=== PATIENT | female | born 1965 | race African-American/Black ===

== ENCOUNTER 2017-12-16 16:33 | Outpatient (CLI) | payer BC | END 2017-12-16 16:34 | disposition home or self-care (01) | LOC: BICMAMMO 16:33 | PROVIDERS: ATTEND Family Medicine | DX: Z12.31 Encounter for screening mammogram for malignant neoplasm of breast (principal) | CPT/HCPCS: 77063; 77067 ==

== ENCOUNTER 2018-12-19 10:17 | Outpatient (CLI) | payer BC | END 2018-12-19 10:18 | disposition home or self-care (01) | LOC: BICMAMMO 10:17 | PROVIDERS: ATTEND Family Medicine | DX: Z12.31 Encounter for screening mammogram for malignant neoplasm of breast (principal) | CPT/HCPCS: 77063; 77067 ==

== ENCOUNTER 2019-12-24 08:11 | Outpatient (CLI) | payer BC ==
--- NOTE | 2019-12-27 13:28 | MMO ---
Bilateral MAMMO Bilat Screen [facility]. CLINICAL HISTORY: Patient is 54 years old and is seen for screening. The patient has no family history of breast cancer. The patient has no personal history of cancer. VIEWS: The views performed were: bilateral craniocaudal with tomosynthesis and bilateral mediolateral oblique with tomosynthesis. FILMS COMPARED: The present examination has been compared to prior imaging studies performed at [facility] on 10/14/2015, 10/27/2016, 12/16/2017 and 12/19/2018. This study has been interpreted with the assistance of computer-aided detection. MAMMOGRAM FINDINGS: There are scattered fibroglandular densities. Finding 1: There are stable benign appearing calcifications seen in both breasts. Finding 2: There are stable benign appearing densities seen in both breasts. There are no suspicious masses, suspicious calcifications, or new areas of architectural distortion. IMPRESSION: THERE IS NO MAMMOGRAPHIC EVIDENCE OF MALIGNANCY. A ROUTINE FOLLOW-UP MAMMOGRAM IN 1 YEAR IS RECOMMENDED. THE RESULTS OF THIS EXAM WERE SENT TO THE PATIENT. ACR BI-RADS Category 2 - Benign finding MAMMOGRAPHY NOTE: 1. A negative mammogram report should not delay a biopsy if a dominant of clinically suspicious mass is present. 2. Approximately 10% to 15% of breast cancers are not detected by mammography. 3. Adenosis and dense breasts may obscure an underlying neoplasm. Reported by: PATRICE MANSFIELD MD Electonically Signed: [id number]
== END 2019-12-24 08:12 | disposition home or self-care (01) ==
LOC: BICMAMMO 08:11
PROVIDERS: ATTEND Family Medicine
DX: Z12.31 Encounter for screening mammogram for malignant neoplasm of breast (principal)
CPT/HCPCS: 77063; 77067

== ENCOUNTER 2021-01-08 08:36 | Outpatient (CLI) | payer BC ==
--- NOTE | 2021-01-08 09:26 | MMO ---
Bilateral MAMMO Bilat Screen [facility]. CLINICAL HISTORY: Patient is 55 years old and is seen for screening. The patient has no family history of breast cancer. The patient has no personal history of cancer. VIEWS: The views performed were: bilateral craniocaudal with tomosynthesis and bilateral mediolateral oblique with tomosynthesis. FILMS COMPARED: The present examination has been compared to prior imaging studies performed at [facility] on 10/27/2016, 12/16/2017, 12/19/2018 and 12/24/2019. This study has been interpreted with the assistance of computer-aided detection. MAMMOGRAM FINDINGS: There are scattered fibroglandular densities. There are stable benign appearing calcifications seen in both breasts. There are no suspicious masses, suspicious calcifications, or new areas of architectural distortion. IMPRESSION: THERE IS NO MAMMOGRAPHIC EVIDENCE OF MALIGNANCY. A ROUTINE FOLLOW-UP MAMMOGRAM IN 1 YEAR IS RECOMMENDED. THE RESULTS OF THIS EXAM WERE SENT TO THE PATIENT. ACR BI-RADS Category 2 - Benign finding MAMMOGRAPHY NOTE: 1. A negative mammogram report should not delay a biopsy if a dominant of clinically suspicious mass is present. 2. Approximately 10% to 15% of breast cancers are not detected by mammography. 3. Adenosis and dense breasts may obscure an underlying neoplasm. Reported by: PAIGE JACKSON MD Electonically Signed: [id number]
== END 2021-01-08 08:37 | disposition home or self-care (01) ==
LOC: BICMAMMO 08:36
PROVIDERS: ATTEND Family Medicine
DX: Z12.31 Encounter for screening mammogram for malignant neoplasm of breast (principal)
CPT/HCPCS: 77063; 77067

== ENCOUNTER 2022-03-30 10:07 | Outpatient (CLI) | payer BC | END 2022-03-30 10:08 | disposition home or self-care (01) | LOC: BICMAMMO 10:07 | PROVIDERS: ATTEND Family Medicine | DX: Z12.31 Encounter for screening mammogram for malignant neoplasm of breast (principal) | CPT/HCPCS: 77063; 77067 ==

== ENCOUNTER 2022-06-04 13:59 | Inpatient (IN) | payer OTHER, BC ==
[2022-06-04] MEDS ORDERED: Fentanyl 100 MCG/2 ML VIAL ONE (15:02)
[2022-06-04] MEDS ORDERED: Ketorolac Tromethamine 30 MG/ML VIAL ONE (15:58)
[2022-06-04] MEDS ORDERED: HYDROcodone/Acetaminophen 5/325 mg Tablet ONE (15:58)
[2022-06-04 16:01] LABS: #Lymphocytes 1.7 thou/uL (1.20-3.40); #Monocytes 0.5 thou/uL (0.11-0.59); #Neutrophils 6.5 thou/uL (1.40-6.50); %Basophils 0.4 % (0.0-1.0); %Eosinophils 0.5 % (0.0-10.0); %Lymphocytes 19.4 % (21.0-51.0); %Monocytes 5.6 % (0.0-10.0); Mean Corpuscular HGB CONC 31.4 g/dL (32.0-36.0); Mean Corpuscular Hemoglobin 30.9 pg (27.0-31.0); Mean Corpuscular Volume 98.4 fL (78.0-98.0); Platelet Count 153 thou/uL (130-400); RBC Distribution Width 13.6 % (11.5-14.5); Red Blood Cell (RBC) Count 3.88 mill/uL (4.20-5.40); White Blood Cell (WBC) Count 8.8 thou/uL (4.8-10.8)
[2022-06-04] MEDS ORDERED: Morphine 2 MG/ML VIAL SLOW IVP PRN ×2 (16:01→16:04)
[2022-06-04] MEDS ORDERED: Cyclobenzaprine 10 MG TAB PO PRN (16:01)
[2022-06-04] MEDS ORDERED: HumaLOG 300 UNITS/3 ML VIAL SC PRN (16:04)
[2022-06-04] MEDS ORDERED: Dextrose 5% in Water 1,000 ML IV PRN (16:04)
[2022-06-04] MEDS ORDERED: Promethazine HCl 25 MG/ML VIAL IM PRN (16:04)
[2022-06-04] MEDS ORDERED: hydrALAZINE 20 MG/ML VIAL SLOW IVP PRN (16:04)
[2022-06-04] MEDS ORDERED: Dextrose 50% Abboject 50 ML SYRINGE SLOW IVP PRN (16:04)
[2022-06-04] MEDS ORDERED: Sodium Chloride 0.9% 1,000 ML IV SCH (16:15)
[2022-06-04 16:33] LABS: ALT (SGPT) 17 U/L (8-55); AST (SGOT) 22 U/L (5-34); Albumin 4.4 g/dL (3.5-5.0); Alkaline Phosphatase 57 U/L (40-110); Anion Gap 19 mmol/L (10-20); BUN (Urea Nitrogen) 21 mg/dL (9.8-20.1); Bilirubin, Total 0.4 mg/dL (0.2-1.2); Calc. Creatinine Clearance 0 mL/min (70-130); Calcium 9.7 mg/dL (7.8-10.44); Carbon Dioxide 19 mmol/L (22-29); Chloride 106 mmol/L (98-107); Estimated GFR 49; Globulin 3.2 g/dL (2.4-3.5); Glucose 153 mg/dL (70-105); Potassium 4.5 mmol/L (3.5-5.1); Protein, Total 7.6 g/dL (6.0-8.3); Sodium 139 mmol/L (136-145)
[2022-06-04] MEDS ORDERED: traMADol HCl 50 MG TAB PO PRN ×2 (17:04→18:00)
[2022-06-04 17:11] LABS: INR-International Normal Ratio 0.9; PTT 28.7 sec (22.9-36.1); Prothrombin Time 12.2 sec (12.0-14.7)
[2022-06-04] MEDS ORDERED: Acetaminophen/Codeine 30-300mg Tablet PO SCH (18:00)
[2022-06-04] MEDS ORDERED: Acetaminophen 325 MG TAB PO SCH (18:00)
[2022-06-04] MEDS: Sodium Chloride 0.9% 1,000 ML IV SCH (19:37)
[2022-06-04] MEDS: Acetaminophen/Codeine 30-300mg Tablet PO SCH (19:39)
[2022-06-04] MEDS: Ketorolac Tromethamine 30 MG/ML VIAL IVP SCH (19:48)
[2022-06-04 20:13] LABS: SARS-CoV-2 NAA Rapid Test Not Detected (NotDetected)
[2022-06-04 20:14] VITALS: BMI 28.8
[2022-06-04] MEDS: Gabapentin 300 MG CAP PO SCH (20:33)
[2022-06-04] MEDS: Famotidine/PF 20 mg/2ml Vial SLOW IVP SCH (20:34)
[2022-06-04] MEDS: Senokot S 8.6-50 MG TAB PO SCH (20:34)
[2022-06-05] MEDS: Acetaminophen/Codeine 30-300mg Tablet PO SCH ×3 (01:14→13:28)
[2022-06-05] MEDS: Ketorolac Tromethamine 30 MG/ML VIAL IVP SCH ×2 (01:18→06:46)
[2022-06-05] MEDS: Sodium Chloride 0.9% 1,000 ML IV SCH ×3 (01:20→19:32)
[2022-06-05] MEDS: Ondansetron PF 4 MG/2 ML Vial IVP PRN ×2 (06:17→12:24)
[2022-06-05] MEDS ORDERED: Sodium Chloride 0.9% 1,000 ML IV SCH (06:45)
[2022-06-05 07:27] LABS: #Eosinphils 0.1 thou/uL (0.0-0.7); #Lymphocytes 1.8 thou/uL (1.20-3.40); #Monocytes 0.8 thou/uL (0.11-0.59); #Neutrophils 4.3 thou/uL (1.40-6.50); %Basophils 0.5 % (0.0-1.0); %Eosinophils 0.7 % (0.0-10.0); %Lymphocytes 25.8 % (21.0-51.0); %Monocytes 11.9 % (0.0-10.0); %Neutrophils 61.1 % (42.0-75.0); Hemoglobin 11.4 g/dL (12.0-16.0); Mean Corpuscular HGB CONC 30.5 g/dL (32.0-36.0); Mean Corpuscular Hemoglobin 30.9 pg (27.0-31.0); Mean Platelet Volume 9.7 fL (7.4-10.4); Platelet Count 136 thou/uL (130-400); RBC Distribution Width 13.6 % (11.5-14.5); Red Blood Cell (RBC) Count 3.69 mill/uL (4.20-5.40)
[2022-06-05 07:33] LABS: Anion Gap 14 mmol/L (10-20); BUN (Urea Nitrogen) 28 mg/dL (9.8-20.1); Calc. Creatinine Clearance 58 mL/min (70-130); Calcium 8.7 mg/dL (7.8-10.44); Carbon Dioxide 19 mmol/L (22-29); Chloride 110 mmol/L (98-107); Estimated GFR 40; Glucose 125 mg/dL (70-105); Potassium 4.2 mmol/L (3.5-5.1); Sodium 139 mmol/L (136-145)
[2022-06-05] MEDS ORDERED: traMADol HCl 50 MG TAB PO PRN (07:37)
[2022-06-05] MEDS: Senokot S 8.6-50 MG TAB PO SCH ×2 (07:59→20:28)
[2022-06-05] MEDS: Gabapentin 300 MG CAP PO SCH ×3 (07:59→20:28)
[2022-06-05] MEDS: Famotidine/PF 20 mg/2ml Vial SLOW IVP SCH (07:59)
[2022-06-05] MEDS: Polyethylene Glycol 3350 17 GM Packet PO SCH (08:00)
[2022-06-05] MEDS ORDERED: Dextrose 5 %-0.45 % NaCl 1,000 ML IV SCH (12:30)
[2022-06-05] MEDS ORDERED: Morphine 2 MG/ML VIAL SLOW IVP PRN (12:44)
[2022-06-05] MEDS ORDERED: Acetaminophen 500 MG TAB PO SCH (12:45)
[2022-06-05] MEDS: Scopolamine 1.5 mg/72 hour Patch TD SCH (13:19)
[2022-06-05 13:48] LABS: Bacteria/HPF 4+ HPF (None Seen); Bilirubin Negative (Negative); Blood, Urine Negative (Negative); Clarity Clear (Clear); Glucose, Urine (Dipstick) 30 mg/dL (Negative); Ketone, Urine Negative (Negative); Leukocyte 250 Leu/uL (Negative); Nitrite Negative (Negative); Protein, Urine (Dipstick) 10 mg/dL (Neg-Trace); RBC/HPF 0-3 HPF (0-3); Specific Gravity, Urine 1.018 (1.002-1.036); Squamous Epithelial 0-3 HPF (0-3); Urobilinogen Normal mg/dL (Less than 2)
[2022-06-05 13:50] LABS: Urine Culture Reflex Yes Yes
[2022-06-05] MEDS: cefTRIAXone\\ROCEPHIN 2 GM in Sodium Chloride 0.9% 100 ML IVPB SCH (15:58)
[2022-06-05] MEDS: Heparin 5,000 UNITS/ML VIAL SC SCH ×2 (15:58→20:30)
[2022-06-05] MEDS: Acetaminophen 500 MG TAB PO SCH (18:01)
[2022-06-05 19:16] LABS: Anion Gap 14 mmol/L (10-20); BUN (Urea Nitrogen) 27 mg/dL (9.8-20.1); Calc. Creatinine Clearance 55 mL/min (70-130); Calcium 8.6 mg/dL (7.8-10.44); Carbon Dioxide 21 mmol/L (22-29); Chloride 108 mmol/L (98-107); Estimated GFR 38; Glucose 353 mg/dL (70-105); Potassium 4.6 mmol/L (3.5-5.1); Sodium 138 mmol/L (136-145)
[2022-06-05] MEDS: Atorvastatin Calcium 40 MG TAB PO SCH (20:28)
[2022-06-05] MEDS ORDERED: Dulaglutide (Trulicity) 0.75 MG/0.5 ML Pen.Injctr SC SCH (21:15)
[2022-06-05] MEDS ORDERED: Insulin Regular 300 UNITS/3 ML VIAL SC SCH (21:15)
[2022-06-06] MEDS: Acetaminophen 500 MG TAB PO SCH ×2 (00:15→05:31)
[2022-06-06] MEDS: Sodium Chloride 0.9% 1,000 ML IV SCH ×2 (03:34→18:47)
[2022-06-06 06:38] LABS: Band 9 % (5-11); Hemoglobin 11.5 g/dL (12.0-16.0); Hemoglobin A1c 6.6 % (4.0-6.0); Lymphocytes 16 % (21-51); MDiff Complete? YES; Mean Corpuscular HGB CONC 30.9 g/dL (32.0-36.0); Mean Corpuscular Hemoglobin 31.1 pg (27.0-31.0); Mean Platelet Volume 10.1 fL (7.4-10.4); Monocytes 8 % (0-10); Neutrophil 67 % (42-75); Platelet Morphology Comment PLT clumps seen-ADEQ; RBC Distribution Width 13.6 % (11.5-14.5); RBC Morphology Normal; Red Blood Cell (RBC) Count 3.71 mill/uL (4.20-5.40); White Blood Cell (WBC) Count 5.8 thou/uL (4.8-10.8)
[2022-06-06 06:47] LABS: Anion Gap 12 mmol/L (10-20); BUN (Urea Nitrogen) 24 mg/dL (9.8-20.1); Calc. Creatinine Clearance 68 mL/min (70-130); Calcium 8.6 mg/dL (7.8-10.44); Carbon Dioxide 22 mmol/L (22-29); Chloride 113 mmol/L (98-107); Estimated GFR 48; Glucose 71 mg/dL (70-105); Magnesium 1.8 mg/dL (1.6-2.6); Phosphorus 3.9 mg/dL (2.3-4.7); Potassium 4.7 mmol/L (3.5-5.1); Sodium 142 mmol/L (136-145)
[2022-06-06] MEDS ORDERED: Magnesium 2 GM/50 ML(in water) 3 GM in Premix Bag 1 BAG IVPB SCH (07:15)
[2022-06-06] MEDS: Senokot S 8.6-50 MG TAB PO SCH ×2 (08:48→19:42)
[2022-06-06] MEDS: Gabapentin 300 MG CAP PO SCH ×3 (08:49→19:41)
[2022-06-06] MEDS: Acetaminophen/Codeine 30-300mg Tablet PO SCH ×3 (08:50→19:41)
[2022-06-06] MEDS ORDERED: Magnesium Sulfate 3 GM in Sodium Chloride 0.9% 100 ML IVPB SCH (09:00)
[2022-06-06] MEDS ORDERED: Pioglitazone HCl 45 MG TAB PO SCH (09:00)
[2022-06-06] MEDS: Polyethylene Glycol 3350 17 GM Packet PO SCH (09:46)
[2022-06-06] MEDS ORDERED: Hydrocortisone Sod Succ/PF 100 mg/2 ml Vial IVP SCH (10:45)
[2022-06-06] MEDS ORDERED: Cyclobenzaprine 10 MG TAB PO PRN (13:01)
[2022-06-06 13:32] LABS: Platelet Count 138 thou/uL (130-400)
[2022-06-06] MEDS: cefTRIAXone\\ROCEPHIN 2 GM in Sodium Chloride 0.9% 100 ML IVPB SCH (15:47)
[2022-06-06] MEDS: Hydrocortisone Sod Succ/PF 100 mg/2 ml Vial IVP SCH ×2 (15:47→21:47)
[2022-06-06] MEDS: Atorvastatin Calcium 40 MG TAB PO SCH (19:42)
[2022-06-06] MEDS ORDERED: Insulin Glargine 30 UNITS/0.3 ML VIAL SC SCH (21:00)
[2022-06-06] MEDS: Heparin 5,000 UNITS/ML VIAL SC SCH (21:47)
[2022-06-07] MEDS ORDERED: Insulin Regular 300 UNITS/3 ML VIAL SC SCH ×2 (01:15→01:30)
[2022-06-07] MEDS: Acetaminophen/Codeine 30-300mg Tablet PO SCH ×4 (01:28→20:43)
[2022-06-07 07:38] LABS: Anion Gap 11 mmol/L (10-20); BUN (Urea Nitrogen) 19 mg/dL (9.8-20.1); Calc. Creatinine Clearance 82 mL/min (70-130); Calcium 8.9 mg/dL (7.8-10.44); Carbon Dioxide 22 mmol/L (22-29); Chloride 112 mmol/L (98-107); Estimated GFR 61; Glucose 58 mg/dL (70-105); Magnesium 2.1 mg/dL (1.6-2.6); Phosphorus 2.9 mg/dL (2.3-4.7); Potassium 4.6 mmol/L (3.5-5.1); Sodium 140 mmol/L (136-145)
[2022-06-07] MEDS ORDERED: glyBURIDE 5 MG TAB PO SCH (08:00)
[2022-06-07] MEDS ORDERED: metFORMIN 500 MG TAB PO SCH (08:00)
[2022-06-07] MEDS ORDERED: Insulin Glargine 30 UNITS/0.3 ML VIAL SC SCH ×3 (09:00→21:00)
[2022-06-07] MEDS: Senokot S 8.6-50 MG TAB PO SCH ×2 (09:01→20:42)
[2022-06-07] MEDS: Heparin 5,000 UNITS/ML VIAL SC SCH ×3 (09:02→20:44)
[2022-06-07] MEDS: Polyethylene Glycol 3350 17 GM Packet PO SCH (09:02)
[2022-06-07] MEDS: Gabapentin 300 MG CAP PO SCH ×3 (09:02→20:44)
[2022-06-07] MEDS: traMADol HCl 50 MG TAB PO SCH ×2 (11:46→17:24)
[2022-06-07] MEDS: Ibuprofen 200 MG TAB PO SCH ×2 (11:46→17:24)
[2022-06-07] MEDS: cefTRIAXone\\ROCEPHIN 2 GM in Sodium Chloride 0.9% 100 ML IVPB SCH (14:47)
[2022-06-07] MEDS: Atorvastatin Calcium 40 MG TAB PO SCH (20:44)
[2022-06-08] MEDS: traMADol HCl 50 MG TAB PO SCH ×3 (00:33→11:18)
[2022-06-08] MEDS: Acetaminophen/Codeine 30-300mg Tablet PO SCH ×3 (02:17→14:03)
[2022-06-08] MEDS: Ibuprofen 200 MG TAB PO SCH (02:17)
[2022-06-08] MEDS ORDERED: Ibuprofen 200 MG TAB PO PRN (08:15)
[2022-06-08] MEDS: Polyethylene Glycol 3350 17 GM Packet PO SCH (08:49)
[2022-06-08] MEDS: Gabapentin 300 MG CAP PO SCH ×2 (08:52→14:02)
[2022-06-08] MEDS: Senokot S 8.6-50 MG TAB PO SCH (08:52)
[2022-06-08] MEDS: Heparin 5,000 UNITS/ML VIAL SC SCH ×2 (08:53→14:14)
[2022-06-08 11:15] VITALS: BP 110/68; TEMP 97.3
[2022-06-08] MEDS: Scopolamine 1.5 mg/72 hour Patch TD SCH (11:19)
== END 2022-06-08 14:30 | disposition home or self-care (01) | DRG 200 ==
LOC: ERS 13:59 → IMCU/EMU 16:02 → SURG A 06-05 21:24
PROVIDERS: ADMIT Physician Assistant; ATTEND Surgery
DX: S27.2XXA Traumatic hemopneumothorax, initial encounter (principal); S22.41XA Multiple fractures of ribs, right side, initial encounter for closed fracture; S27.329A Contusion of lung, unspecified, initial encounter; N17.9 Acute kidney failure, unspecified; N39.0 Urinary tract infection, site not specified; E27.40 Unspecified adrenocortical insufficiency; Z20.822 Contact with and (suspected) exposure to COVID-19; W01.0XXA Fall on same level from slipping, tripping and stumbling without subsequent striking against object, initial encounter; E78.00 Pure hypercholesterolemia, unspecified; E11.9 Type 2 diabetes mellitus without complications; F17.210 Nicotine dependence, cigarettes, uncomplicated; N18.9 Chronic kidney disease, unspecified; Z98.51 Tubal ligation status
CPT/HCPCS: 36415; 36416; 71045; 71250; 80048; 80053; 81001; 82533; 83036; 83735; 84100; 84484; 85025; 85610; 85730; 87077; 87086; 87186; 93005; 93010; 96374; 96375; G0306; G0390; J0696; J1644; J1720; J1815; J1885; J2270; J2405; J3010; J3475; J3490; J7042; J7050; J7999; S0028

== ENCOUNTER 2022-06-21 09:46 | Outpatient (CLI) | payer OTHER | END 2022-06-21 09:47 | disposition home or self-care (01) | LOC: BICRAD 09:46 | PROVIDERS: ATTEND Surgery | DX: S22.49XA Multiple fractures of ribs, unspecified side, initial encounter for closed fracture (principal); J98.4 Other disorders of lung; J18.1 Lobar pneumonia, unspecified organism | CPT/HCPCS: 71046 ==

== ENCOUNTER 2022-07-05 10:07 | Outpatient (CLI) | payer OTHER | END 2022-07-05 10:08 | disposition home or self-care (01) | LOC: BICRAD 10:07 | PROVIDERS: ATTEND Surgery | DX: S22.39XA Fracture of one rib, unspecified side, initial encounter for closed fracture (principal) | CPT/HCPCS: 71046 ==

== ENCOUNTER 2023-04-27 09:39 | Outpatient (CLI) | payer OTHER | END 2023-04-27 09:40 | disposition home or self-care (01) | LOC: BICMAMMO 09:39 | PROVIDERS: ATTEND Family Medicine | DX: Z12.31 Encounter for screening mammogram for malignant neoplasm of breast (principal) | CPT/HCPCS: 77063; 77067 ==

== ENCOUNTER 2024-05-18 12:03 | Outpatient (CLI) | payer OTHER | END 2024-05-18 12:04 | disposition home or self-care (01) | LOC: BICMAMMO 12:03 | PROVIDERS: ATTEND Family Medicine | DX: Z12.31 Encounter for screening mammogram for malignant neoplasm of breast (principal) | CPT/HCPCS: 77063; 77067 ==

== ENCOUNTER 2025-07-31 12:42 | Outpatient (CLI) | payer OTHER | END 2025-07-31 12:43 | disposition home or self-care (01) | LOC: BICMAMMO 12:42 | PROVIDERS: ATTEND Family Medicine | DX: Z12.31 Encounter for screening mammogram for malignant neoplasm of breast (principal); Z80.3 Family history of malignant neoplasm of breast | CPT/HCPCS: 77063; 77067 ==